=== PATIENT | female | born 1990 | race Caucasian/White ===

== ENCOUNTER 2020-11-26 17:49 | Outpatient (RCR) | payer BC, SELFPAY | END 2021-02-22 23:59 | disposition home or self-care (01) | LOC: ANHLAB 17:49 | PROVIDERS: PCP Family Medicine; Visit Provider Obstetrics & Gynecology Gynecology | DX: O26.21 Pregnancy care for patient with recurrent pregnancy loss, first trimester (principal); Z3A.00 Weeks of gestation of pregnancy not specified | CPT/HCPCS: 36415; 84702 ==

== ENCOUNTER 2021-01-11 10:42 | Outpatient (CLI) | payer BC, SELFPAY ==
--- NOTE | ~2021-01-11 | US_ITS ---
EXAMINATION: US OB follow up DATE: 01/11/2021 11:30 INDICATION: Uncertain dating of . TECHNIQUE: Real-time ultrasound of the pelvis was performed. The interpreting radiologist was not pre sent for the study. COMPARISON: None. FINDINGS: There is a single living fetus in breech presentation. The placenta is anterior and low-lying with c audal margin 1.9 cm from the internal cervical os. heart rate is 145 beats per minute (bpm). Th e amniotic volume is subjectively normal. The following biometric data were obtained: BPD: 3.4 cm -> 16 weeks 3 days Head circumference: 12.7 cm -> 16 weeks 3 days Abdominal circumference: 10.8 cm -> 16 weeks 5 days Femur length: 2.0 cm -> 16 weeks 0 days These measurements are concordant. Head circumference to abdominal circumference ratio: 1.18 (normal range 1.06-1.32). Estimated weight: 154 g (+/-) 23 g. or 5 oz. (+/-) 1 oz. IMPRESSION: 1. Single living fetus in breech presentation with heart rate of 145 bpm. 2. Gestational age by ultrasound of 16 weeks 3 day(s) +/- 1 week(s) 1 day(s) with ultrasound estimate d date of delivery (ERICH) of 06/25/2021. Estimated weight is 3rd percentile by Hadlock criteria w hen 06/03/2021 is used as the ERICH. Please correlate with clinical information or earlier ultrasounds f or most accurate ERICH. 3. Low-lying anterior placenta with caudal margin 1.9 cm from the internal cervical os. Reviewed, dictated and finalized at location A. IMPRESSION: 1. Single living fetus in breech presentation with heart rate of 145 bpm. 2. Gestational age by ultrasound of 16 weeks 3 day(s) +/- 1 week(s) 1 day(s) wi th ultrasound estimated date of delivery (ERICH) of 06/25/2021. Estimated we ight is 3rd percentile by Hadlock criteria when 06/03/2021 is used as the ERICH. P lease correlate with clinical information or earlier ultrasounds for most accur ate ERICH. 3. Low-lying anterior placenta with caudal margin 1.9 cm from the internal cerv ical os.
== END 2021-01-11 10:43 | disposition home or self-care (01) ==
PROVIDERS: PCP Family Medicine; Visit Provider Nurse Practitioner
DX: Z36.87 Encounter for antenatal screening for uncertain dates (principal); Z3A.16 16 weeks gestation of pregnancy
CPT/HCPCS: 76816

== ENCOUNTER 2021-04-08 16:48 | Outpatient (CLI) | payer BC, SELFPAY ==
[2021-04-08 17:12] LABS: Basophils Percent Auto 0.3 % (0.2-1.2); Eosinophils Absolute Auto 0.1 K/mm3 (0-0.3); Eosinophils Percent Auto 0.7 % (0-4.4); Hematocrit 34.3 % (37.0-47.0); Hemoglobin 11.5 g/dL (12.0-15.0); Immature Granulocyte Absolute 0.06 K/mm3 (0.00-0.031); Immature Granulocyte Percent A 0.6 % (0-0.5); Lymphocytes Percent Auto 21.9 % (18.3-44.2); Mean Corpuscular HGB Conc 33.5 g/dl (32-36); Mean Corpuscular Hemoglobin 30.8 pg (26-34); Mean Platelet Volume 8.8 fl (7.4-10.4); Monocytes Absolute Auto 0.6 K/mm3 (0.1-0.6); Monocytes Percent Auto 6.7 % (2.6-8.5); Neutrophils Absolute Auto 6.7 K/mm3 (1.3-6.7); Neutrophils Percent Auto 69.8 % (45.5-73.1); Platelet Count Result 250 k/mm3 (150-375); Red Blood Count 3.73 M/mm3 (4.2-5.4); Red Cell Distribution Width 11.9 % (11.5-14.5); White Blood Count 9.6 K/mm3 (4.5-10.0)
[2021-04-08 19:20] LABS: Hemoglobin A1C 4.9 % (<5.7)
[2021-04-08 19:56] LABS: Hepatitis B Surface Antigen Negative (Negative); Rubella IgG Antibody 17.5 IU/ML
[2021-04-08 20:04] LABS: HIV 1/2 Ab P24 Ag Result Negative (Negative)
[2021-04-08 21:53] LABS: Vitamin D 25 Hydroxy 40.8 ng/mL
[2021-04-09 09:28] LABS: Rapid Plasma Reagin Non-Reactive (NonReactive)
== END 2021-04-08 16:49 | disposition home or self-care (01) ==
PROVIDERS: PCP Family Medicine; Visit Provider Obstetrics & Gynecology Gynecology
DX: Z34.92 Encounter for supervision of normal pregnancy, unspecified, second trimester (principal); Z3A.16 16 weeks gestation of pregnancy
CPT/HCPCS: 36415; 82306; 83036; 85025; 85461; 86592; 86703; 86762; 87340; G0432

== ENCOUNTER 2021-04-20 15:48 | Outpatient (CLI) | payer BC, SELFPAY ==
--- NOTE | ~2021-04-20 | US_ITS ---
EXAMINATION: US OB /maternal detail DATE: 04/20/2021 16:56 INDICATION: Low-lying placenta. survey. TECHNIQUE: Multiple obstetric sonographic images performed. FINDINGS: Comparison ultrasound dated 01/11/2021 There is a single living fetus in breech presentation. The placenta is anterior without placenta pre via. Amniotic fluid volume is normal. TIM measures 18 cm. cardiac activity and movement is noted with a heart rate of 138 beats per minute. The following anatomy was identified as normal: 4 chamber heart 3 vessel cord cord insertion kidneys urinary bladder stomach diaphragm The intracranial structures and spine are not well visualized due to advanced gestational age. The following biometric data were obtained: BPD: 80mm corresponds to gestational age 31 weeks 6 days. Head circumference: 294 mm corresponds to gestational age 32 weeks 3 days. Abdominal circumference: 276 mm corresponds to gestational age 31 weeks 4 days. Femur length: 59 mm corresponds to gestational age 30 weeks 4 days. Head circumference to abdominal circumference ratio: 1.07 (normal range for expected gestational age is 0.96-1.15). Estimated weight: 1760 grams +/- 264 grams using Hadlock method. IMPRESSION: 1: Single living intrauterine with an estimated gestational age of 30weeks 4days by initial ultrasound measurements, with an EDC of 06/25/2021 in breech presentation. 2. Normal limited survey. Evaluation of intracranial structures and spine are limited due to a dvanced gestational age. Reviewed, dictated and finalized at location A. IMPRESSION: 1: Single living intrauterine with an estimated gestational age of 30 weeks 4days by initial ultrasound measurements, with an EDC of 06/25/2021 in franck ech presentation. 2. Normal limited survey. Evaluation of intracranial structures and spin e are limited due to advanced gestational age.
== END 2021-04-20 15:49 | disposition home or self-care (01) ==
PROVIDERS: PCP Family Medicine; Visit Provider Obstetrics & Gynecology Gynecology
DX: Z36.9 Encounter for antenatal screening, unspecified (principal); Z3A.30 30 weeks gestation of pregnancy
CPT/HCPCS: 76805

== ENCOUNTER 2021-05-03 13:46 | Outpatient (CLI) | payer BC, SELFPAY ==
[2021-05-03 15:38] LABS: Glucose 1 Hour PP 50gm Dose 105 mg/dL
== END 2021-05-03 13:47 | disposition home or self-care (01) ==
LOC: ANHLAB 13:48
PROVIDERS: PCP Family Medicine; Visit Provider Obstetrics & Gynecology Gynecology
DX: Z34.93 Encounter for supervision of normal pregnancy, unspecified, third trimester (principal); Z3A.00 Weeks of gestation of pregnancy not specified
CPT/HCPCS: 36415; 82947

== ENCOUNTER 2021-06-16 15:00 | Outpatient (RCR) | payer BC, SELFPAY ==
--- NOTE | ~2021-06-16 | US_ITS ---
EXAMINATION: US OB limited w BPP EXAM DATE: 06/16/2021 16:07 INDICATION: BPP and TIM- oligohydraminos BPP AND TIM . 3rd trimester. TECHNIQUE: Pelvic obstetrical transabdominal sonogram was performed by a technologist. There are mu ltiple grayscale and Doppler images available for interpretation. Comparison is made to prior examina tion from 04/20/2021. FINDINGS: There is a single fetus identified in vertex presentation with a heart rate of 159 beats pe r minute. The placenta is located in the anterior position. There is no sonographic evidence of retr oplacental hemorrhage identified. AMNIOTIC FLUID INDEX Quadrant 1: 2.4 cm Quadrant 2: 2.4 cm Quadrant 3: 1.6 cm Quadrant 4: 2.6 cm Amniotic fluid index: 9.0 cm. (The 5th -- 95th percentile range is 7.2-22.6 centimeters). BIOPHYSICAL PROFILE (performed by the technologist) breathing (30 sec sustained breathing in 30 minutes): 2 out of 2 movement (3 gross body movements in 30 minutes): 2 out of 2 tone (one episode of doxbjok-kcvvnfnyu-dvfblya limb movement): 2 out of 2 Amniotic fluid pocket (2 cm): 2 out of 2 Total score: 8 out of 8 IMPRESSION: 1. Single fetus with heart rate of 159 bpm. 2. Normal biophysical profile score of 8 out of 8. 3. Amniotic Fluid Index 9.0 cm, lower limits of normal . Reviewed, dictated and finalized at location B.
[2021-06-16 16:50] VITALS: BP 121/68; PULSE 84
== END 2021-06-30 10:10 | disposition home or self-care (01) ==
LOC: ANHOBOP 15:00
PROVIDERS: PCP Family Medicine; Visit Provider Obstetrics & Gynecology Gynecology
DX: O41.03X0 Oligohydramnios, third trimester, not applicable or unspecified (principal); Z3A.38 38 weeks gestation of pregnancy
CPT/HCPCS: 59025; 76815; 76819

== ENCOUNTER 2021-06-22 06:23 | Inpatient (IN) | payer BC, SELFPAY ==
[2021-06-22] VITALS (81 sets, daily range): BP systolic 95–141; BP diastolic 51–86; PULSE 73–116; RESP 18; TEMP 36.5–36.8; O2SAT 81–100; BMI 34.2
--- NOTE | 2021-06-22 07:41 | WPDOBADMIT ---
Obstetrics - Admit Note Admission Note: record reviewed. No pertinent additions to the history and/or any subsequent changes in the physical findings that are not consistent with the expected course of the were found. Additions to the history and/or subsequent changes in the physical findings follow. Here for MIL at 39 wks. Cervix 4/80/-2 AROM with light mec. noted. FHTs reactive.
[2021-06-22] MEDS: OXYTOCIN 30 UNITS/NS 500 ML 30 UNITS/500 ML BAG IV CONT (08:29)
[2021-06-22] MEDS: LACTATED RINGERS 1,000 ML 125 ML IV CONT (08:29)
[2021-06-22] MEDS: AMPICILLIN 2 GM/NS 100 ML 2 GM/100 ML BAG IVPB (08:29)
[2021-06-22 08:30] LABS: Basophils Percent Auto 0.3 % (0.2-1.2); Eosinophils Absolute Auto 0.1 K/mm3 (0-0.3); Hematocrit 35.1 % (37.0-47.0); Hemoglobin 11.8 g/dL (12.0-15.0); Immature Granulocyte Absolute 0.07 K/mm3 (0.00-0.031); Immature Granulocyte Percent A 0.7 % (0-0.5); Lymphocytes Absolute Auto 1.78 K/mm3 (0.9-3.2); Lymphocytes Percent Auto 18.3 % (18.3-44.2); Mean Corpuscular HGB Conc 33.6 g/dl (32-36); Mean Corpuscular Hemoglobin 30.6 pg (26-34); Mean Corpuscular Volume 91.2 fl (80-100); Mean Platelet Volume 9.6 fl (7.4-10.4); Monocytes Absolute Auto 0.5 K/mm3 (0.1-0.6); Monocytes Percent Auto 5.5 % (2.6-8.5); Neutrophils Absolute Auto 7.2 K/mm3 (1.3-6.7); Neutrophils Percent Auto 74.2 % (45.5-73.1); Platelet Count Result 233 k/mm3 (150-375); Red Blood Count 3.85 M/mm3 (4.2-5.4); Red Cell Distribution Width 12.3 % (11.5-14.5); White Blood Count 9.7 K/mm3 (4.5-10.0)
--- NOTE | 2021-06-22 09:04 | WPDANESEPP ---
Anes - Eval Pre Procedure Procedure: labor epidural Date/Time: 06/22/21 09:04 Pre Op Diagnosis: iol Patient Data Age: 30 Gender: F Height: 1.7 m Weight: 99 kg Last Vital Signs Pulse 88 06/22/21 07:31 BP 121/72 06/22/21 07:31 Allergies Allergy/AdvReac Type Severity Reaction Status Date / Time Sulfa (Sulfonamide Allergy Severe Anaphylactic Verified 06/22/21 08:34 Antibiotics) Shock Home Medications Medication Instructions Recorded Confirmed Type PNV cmb#95-ferrous fumarate-FA 1 tablet PO DAILY 09/10/19 06/22/21 History [] ergocalciferol (vitamin D2) 1 tablet PO DAILY 06/16/21 06/22/21 History ferrous sulfate 325 mg PO DAILY 06/16/21 06/22/21 History loratadine [Claritin] 10 mg PO DAILY 06/16/21 06/22/21 History Laboratory Tests 06/22/21 06/22/21 07:57 07:57 WBC 9.7 K/mm3 K/mm3 (4.5-10.0) RBC 3.85 M/mm3 L M/mm3 (4.2-5.4) Hgb 11.8 g/dL L g/dL (12.0-15.0) Hct 35.1 % L % (37.0-47.0) MCV 91.2 fl fl (80-100) MCH 30.6 pg pg (26-34) MCHC 33.6 g/dl g/dl (32-36) RDW 12.3 % % (11.5-14.5) Plt Count 233 k/mm3 k/mm3 (150-375) MPV 9.6 fl fl (7.4-10.4) Immature Gran % (Auto) 0.7 % H % (0-0.5) Neut % (Auto) 74.2 % H % (45.5-73.1) Lymph % (Auto) 18.3 % % (18.3-44.2) [place] % (Auto) 5.5 % % (2.6-8.5) Eos % (Auto) 1.0 % % (0-4.4) Baso % (Auto) 0.3 % % (0.2-1.2) Lymph # (Auto) 1.78 K/mm3 K/mm3 (0.9-3.2) [place] # (Auto) 0.5 K/mm3 K/mm3 (0.1-0.6) Eos # (Auto) 0.1 K/mm3 K/mm3 (0-0.3) Baso # (Auto) 0.0 K/mm3 K/mm3 (0.0-0.1) Abs Immat Gran (auto) 0.07 K/mm3 H K/mm3 (0.00-0.031) Absolute Neuts (auto) 7.2 K/mm3 H K/mm3 (1.3-6.7) Absolute Nucleated RBC 0.0 K/mm3 K/mm3 (0.0-0.012) Nucleated RBC % 0.0 % % (0.0-0.2) RPR Pending Patient hx anesthesia problems: none Family hx anesthesia problems: none [facility] Past Medical History Medical History Bronchitis (normal spontaneous vaginal delivery) Obesity (BMI 30-39.9) Family History Family History Father Testicle cancer Hypertension Grandparent Breast cancer Hypertension Diabetes mellitus Mother Diabetes mellitus Social History Social History Smoking status: Never smoker Substance use: never Spiritual care concerns: Yes Exam Day of Procedure 06/22/21 09:04 Patient weight: obese Heart: regular rate and rhythm Lungs: normal air movement Airway: Mallampati scale class II Neurological: alert and oriented
[2021-06-22] MEDS: AMPICILLIN 1 GM/NS 50 ML 1 GM/50 ML BAG IVPB ×2 (12:22→16:08)
--- NOTE | 2021-06-22 12:30 | LDADM ---
This patient, Mulu Thomas, was admitted to Labor/Delivery/Recovery 102 on 06/22/21 at 06:23. Plans for labor, pain management and were discussed with patient. Patient/family oriented to hospital policies and general routines including ID bracelet, bed and alarms, visiting hours, pain management, procedures, bathroom and other care routines, personal items, smoking policy, room service/diet and guest tray routines, security routines, call light and visiting hours. Patient/Family are encouraged to report perceived risks to care and to ask questions if they do not understand what they are told or what they should do. See OBIX for further documentation.
--- NOTE | 2021-06-22 17:28 | PM.OBPRVD ---
OB - Delivery Note Procedure Delivery date: 06/22/21 Procedure: events: Labor Induction Intrapartal events: None Induction method: AROM and per pitocin protocol Delivery monitor: external FHT and external uterine Route of delivery: Laceration Description: Perineal - 1st Degree Delivery repair: vicryl (3-0) Specimen: No Quantitative Blood Loss (ml): 125 Anesthesia type: Epidural Disposition: floor Baby Date of : 06/22/21 Weeks of gestation at delivery: 39 Infant gender: Male presentation: vertex position: Left Occiput Anterior Placenta delivery description: Spontaneous cord vessel description: 3 Vessels score one minute: 9 score five minutes: 9
--- NOTE | 2021-06-22 17:29 | P.DS_ITS ---
DS: Admitting Diagnosis Discharge Date IUP 39 wks [facility] Admitting Diagnosis IUP 39 wks [facility] OB - DS: Summary OB Procedures : Ultrasound OB Procedures Intrapartum: Spontaneous Vag Delivery OB Procedures: : None Peripartum Data Delivery Method: Natural Vaginal Laceration Description: Perineal - 1st Degree complications: none Status at Discharge Functional status at discharge: independent ambulation Overall status at discharge: patient is progressing back to baseline Time Spent with Patient Time attestation: Total time spent providing and/or coordinating discharge services: DS: Data Data Completed and Pending Labs on day of discharge: Labs from last 24 hours 06/22/21 06/22/21 06/22/21 07:57 07:57 07:57 WBC 9.7 RBC 3.85 L Hgb 11.8 L Hct 35.1 L MCV 91.2 MCH 30.6 MCHC 33.6 RDW 12.3 Plt Count 233 MPV 9.6 Immature Gran % (Auto) 0.7 H Neut % (Auto) 74.2 H Lymph % (Auto) 18.3 [place] % (Auto) 5.5 Eos % (Auto) 1.0 Baso % (Auto) 0.3 Lymph # (Auto) 1.78 [place] # (Auto) 0.5 Eos # (Auto) 0.1 Baso # (Auto) 0.0 Abs Immat Gran (auto) 0.07 H Absolute Neuts (auto) 7.2 H Absolute Nucleated RBC 0.0 Nucleated RBC % 0.0 RPR Pending Blood Type A Positive Antibody Screen Negative Discharge Plan Discharge Attending physician on discharge: Patricia Minor Discharging Clinician: Patricia Minor Anticipated Discharge Date/Time: 06/24/21 17:32 Patient Disposition: Home, Self-Care Activity: may shower and pelvic rest Diet: regular Patient Instructions: Antibiotic Form Stand Alone Forms: General Discharge Information Follow-up/Referrals: Patricia Minor MD [Physician] - 6 Weeks Discharge Medications: Continued PNV cmb#95-ferrous fumarate-FA [] 28 mg iron- 800 mcg Tablet 1 tablet PO DAILY RF: 0 ergocalciferol (vitamin D2) 1 tablet PO DAILY RF: 0 Discontinued loratadine [Claritin] 10 mg Tablet 10 mg PO DAILY RF: 0 ferrous sulfate 325 mg (65 mg iron) Tablet 325 mg PO DAILY RF: 0 Date of admission: 06/22/21 06:23 Primary Care Provider: Micheal,Armaan Admitting Provider: Patricia Minor Attending physician on admission: Patricia Minor Condition: Stable Care Plan Goals: Plans Liletta IUD for bc
[2021-06-22] MEDS: OXYTOCIN 30 UNITS/NS 500 ML 30 UNITS/500 ML BAG 125 UNITS IV CONT (17:51)
[2021-06-22] MEDS: WITCH HAZEL 40 PADS 1 PAD TOPICAL (20:15)
[2021-06-22] MEDS: LORATADINE 10 MG TABLET PO (20:15)
[2021-06-22] MEDS: BENZOCAINE 20% AER SPR (*SP) 56 GM CAN 1 SPRAY TOPICAL (20:15)
--- NOTE | 2021-06-22 20:31 | OBPPTRN ---
Patient transferred to post room #281 via wheelchair. Support person present. Oriented to unit, room, information board, rooming in, admission packet and security measures. Patient verbalizes understanding.
[2021-06-23] MEDS: ACETAMINOPHEN 325 MG TABLET 650 MG PO (03:35)
[2021-06-23] MEDS: IBUPROFEN 600 MG TABLET PO ×2 (03:35→17:41)
[2021-06-23] MEDS: TETANUS,DIPHTHERIA,AC PERTUSSIS ADULT (0.5 ML) BOOSTRIX IM (03:43)
[2021-06-23 03:50] VITALS: BP 117/72; PULSE 74; RESP 18; TEMP 36.7
[2021-06-23 05:15] LABS: Hematocrit 34.6 % (37.0-47.0); Hemoglobin 11.9 g/dL (12.0-15.0)
--- NOTE | 2021-06-23 05:20 | P.PNOB_ITS ---
OB - PN: Subj Subjective Date/time seen: 06/23/21 05:20 Patient comments: no complaints and pain well controlled baby status: doing well OB - PN: Obj Data Labs CBC & Chem 7: 06/22/21 07:57 Labs: Laboratory Results - last 24 hr 06/22/21 06/22/21 07:57 07:57 WBC 9.7 RBC 3.85 L Hgb 11.8 L Hct 35.1 L MCV 91.2 MCH 30.6 MCHC 33.6 RDW 12.3 Plt Count 233 MPV 9.6 Immature Gran % (Auto) 0.7 H Neut % (Auto) 74.2 H Lymph % (Auto) 18.3 [place] % (Auto) 5.5 Eos % (Auto) 1.0 Baso % (Auto) 0.3 Lymph # (Auto) 1.78 [place] # (Auto) 0.5 Eos # (Auto) 0.1 Baso # (Auto) 0.0 Abs Immat Gran (auto) 0.07 H Absolute Neuts (auto) 7.2 H Absolute Nucleated RBC 0.0 Nucleated RBC % 0.0 Blood Type A Positive Antibody Screen Negative OB - PN A/P Plan day: 1 Plan: routine care Time Spent With Patient Time: Total time spent is greater than 50% in coordination of care (as documented) at patient's floor/unit and/or counseling patient: Exam : Bimanual exam- vagina & uterus: other (Uterus firm, nt @U)
[2021-06-23 07:55] VITALS: BP 99/67; PULSE 66; RESP 16; TEMP 36.2; O2SAT 98
[2021-06-23 08:01] LABS: Rapid Plasma Reagin Non-Reactive (NonReactive)
--- NOTE | 2021-06-23 08:35 | WPDANLDPN2 ---
Anes-Prog Note L&D Date/Time: 06/23/21 08:35 Comfortable throughout: labor and delivery Neuraxial method: epidural Epidural/Spinal procedure site: clean & non-tender Neuro status: Neuro function grossly intact. Cardiovascular status: normal Respiratory status: normal Airway patency: baseline Mental status: baseline Post-Op hydration status: normal Vital Signs: Last Vital Signs Temp 36.7 C 06/23/21 03:50 Pulse 74 06/23/21 03:50 Resp 18 06/23/21 03:50 BP 117/72 06/23/21 03:50 Pulse Ox 100 06/22/21 17:11 Pain score (VAS): 3 I/O: Intake & Output 06/22/21 06/23/21 06/23/21 23:59 07:59 15:59 Intake Total 2550 Output Total 673 Balance 1877 Post-procedural complaints: none Patient feedback: Patient satisfied with anesthetic care.
--- NOTE | 2021-06-23 13:25 | PC.NURSE ---
Mother called out for assist with feeding, reporting is sleepy and not latching. Mother reports infant is making good attempts to latch and does not nurse more than 4-5 good draws and will release latch. Mother states she used a nipple shield with first child and would like to see if this would help infant maintain latch. Infant is able to freely thrust tongue past gum ridge and flange both lips. Skin is intact on both nipples, no redness and bruising noted. Reviewed infant feeding cues, frequencies, duration of feedings, feeding elimination flow sheet, and signs of adequate intake. Demonstrated stimulation techniques to wake infant for feeding. Assisted with to breast. Reviewed positioning/alignment in cross cradle, holding breast in ?U? hold and guided asymmetrical latch on. Discussed rational for each. made eager attempts and is unable to latch correctly, he does not draw entire nipple in. Attempt for 10 minutes, with mother reporting this is a typical feeding. Nipple shield provided to mother due to is not able to draw nipple in. Discussed nipple shield precautions and possible complications. Instructions given on application and cleaning of shield Patient able to return demonstration on proper application of shield. Discussed the need to initiate pumping if continues to nurse with the shield. Patient verbalizes understanding. With shield in place, was able to latch deeply. Reviewed signs of a correct latch, effective nursing and suck swallow ratio. nursed eagerly with steady draws for short bursts and long pausing. was able to be stimulated into nursing, again for bursts. Reviewed the difference of effective vs ineffective nursing. Suggested mother stimulate while feeding to increase stimulation, increase intake and to assist with maintaining deep latch. Reviewed effective vs ineffective nursing. Parents have supplemented once during the night. Discussed current feeding observation is not effective with good milk transfer and suggested mother supplement 10-15mls after feeding. Mother is hesitant to supplement with concerns of supplement impacting nursing. Reviewed adequate signs of intake and infant is WNL at this time. Nipple care reviewed of lanolin after feedings, warm compresses as needed at the breast for 20 minutes with on and off feeding. Instructed mother to call out for RN assistance if she is unable to latch infant for feeding or she has discomfort with nursing. Instructed feeding should be initiated three hours from start of last feeding or if feeding cues are noted before. Mother voiced understanding of information shared.
[2021-06-23 13:30] VITALS: BP 109/69; PULSE 66; RESP 16; TEMP 36.9; O2SAT 96
[2021-06-23] MEDS: LORATADINE 10 MG TABLET PO (17:43)
[2021-06-23 20:00] VITALS: BP 114/72; PULSE 67; RESP 16; TEMP 36.7; O2SAT 100
--- NOTE | 2021-06-24 07:29 | PM.OBPNVD ---
OB - PN: Subj Subjective Date/time seen: 06/24/21 07:29 Patient comments: no complaints and pain well controlled baby status: doing well OB - PN: Obj Data Labs CBC & Chem 7: 06/23/21 04:05 Labs: Laboratory Results - last 24 hr 06/22/21 07:57 RPR Non-reactive OB - PN A/P Plan day: 2 Plan: routine care, discharge home, follow up 6 weeks and other (corbin Cast) Time Spent With Patient Time: Total time spent is greater than 50% in coordination of care (as documented) at patient's floor/unit and/or counseling patient: Exam : Bimanual exam- vagina & uterus: other (Uterus firm, nt @U)
[2021-06-24 08:05] VITALS: BP 114/70; PULSE 74; RESP 18; TEMP 36.7; O2SAT 98
[2021-06-24] MEDS: IBUPROFEN 600 MG TABLET PO (08:13)
--- NOTE | 2021-06-24 09:00 | PC.NURSE ---
Mother is able to independently latch with appropriate positioning/alignment. She denies any nipple discomfort, is feeding as required and waking infant to feed if needed. Infant is feeding as required followed with 15-20 mls supplementation in the past 12 hours, and is currently meeting outcomes for weight, output, jaundice and feeding frequencies. is more awake and eager to feed today. Mother states she will continue to supplement until her milk is in and feels is more awake and having longer feedings. Discussed initiating pumping after some feedings to stimulate milk supply. Mother does not feel she wishes to pump at this time and will begin pumping if her milk is not in within a few days and feels requires supplementation. Mother states first child was sleepy at first and had a good milk supply at day 4. Mother has her own double electric pump for home use. Discussed increasing supplementation as infant requires to satisfactions. Reviewed paced feeding and suggested to stop when is satisfied, as long as is having required output. With increased supplementation infant may not want to feed for 4 hours. Reviewed once mother?s milk is established and is effectively feeding may have increased intake with nursing and may be able to discontinue supplement. Advised not to discontinue supplement until ICP, Follow-Up RN or LC has a pre/post weighted evaluation of infant feeding. Reviewed transition to breast milk, signs of adequate intake, and engorgement/relief. Instructed to call ICP if intake/output less than required. Reviewed regular medications mother is taking. Information provided per Tiffani. Reviewed community resources on the [facility] website and in the Mom/Baby guide. Information on outpatient services provided. Mother has no further questions at this time
[2021-06-25 09:39] VITALS: BP 111/72; PULSE 87; RESP 20; TEMP 36.9; O2SAT 100
== END 2021-06-24 12:00 | disposition home or self-care (01) | DRG 806 ==
LOC: ANHLDR 17:33 → ANHOB2 20:50
PROVIDERS: Admitting Provider Obstetrics & Gynecology Gynecology; PCP Family Medicine; Visit Provider Obstetrics & Gynecology Gynecology
DX: O70.0 First degree perineal laceration during delivery (principal); O41.03X0 Oligohydramnios, third trimester, not applicable or unspecified; Z37.0 Single live birth; O77.0 Labor and delivery complicated by meconium in amniotic fluid; Z3A.39 39 weeks gestation of pregnancy
CPT/HCPCS: 36415; 85014; 85018; 85025; 86592; 86850; 86900; 86901; 90715; A9270; J0290; J2590; J2795; J7120

== ENCOUNTER 2025-10-14 14:30 | Inpatient (IN) | payer BC, SELFPAY ==
[2025-10-14] VITALS (87 sets, daily range): BP systolic 95–138; BP diastolic 47–100; PULSE 74–171; RESP 16; TEMP 36.8–37.1; O2SAT 98–100; BMI 36.1
--- OUTSIDE RECORDS SUMMARY | 2025-10-14 14:49 | XMS_ITS | Clinical Summary ---
Author Organization [facility] Address [address] [place] [phone] Phone Care Team Providers Care Bond Trader Name Role Phone Unavailable Primary Care Provider Unavailabl e Social History Tobacco Use Types Packs/Day Years Used Date Smoking Tobacco: Never Assessed Comments Unknown Sex and Gender Information Value Date Recorded Sex Assigned at Not on file Legal Sex Female 7:32 AM CDT Gender Identity Not on file Sexual Orientation Not on file Plan of Treatment Health Maintenance Due Date Last Done Comments DTAP/TDAP/TD VACCINES (1 - Tdap) 12/15/2007 HEPATITIS B VACCINES (1 of 3 - 19+ 3-dose series) 10/2007 HPV/Cotest (21-29) 2009 CERVICAL CANCER SCREENING 2018 HPV/Cotest (30-65) 2018 PAP SMEAR 2018 INFLUENZA VACCINE (#1) 2025 HPV VACCINES (No Doses Required) Completed Insurance BCBS TRADITIONAL
--- OUTSIDE RECORDS SUMMARY | 2025-10-14 15:05 | XMS_ITS | Clinical Summary ---
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 Gender Identity Not on file Sexual Orientation Not on file Last Filed Vital Signs Vital Sign Reading Time Taken Comments Blood Pressure 117/76 03/29/2017 10:29 AM CDT Pulse 65 03/29/2017 10:29 AM CDT Temperature - - Respiratory Rate - - Oxygen Saturation - - Inhaled Oxygen Concentration - - Weight 79.8 kg (176 lb) 03/29/2017 10:29 AM CDT Height 170.2 cm (5' 7) 03/29/2017 10:29 AM CDT Body Mass Index 27.57 03/29/2017 10:29 AM CDT Plan of Treatment Health Maintenance Due Date Last Done Comments Cervical Cancer Screening Pa p Smear (Age 30 to 64) Every 3 Years 1988 Annual Physical 12/15/1991 Hepatitis C 2006 DTaP, Tdap and Td Vaccines ( 1 - Tdap) 12/15/2007 Hepatitis B Vaccines (1 of 3 - 19+ 3-dose series) 12/15/2007 HPV Vaccines (1 - 3-dose SCD M series) 12/15/2015 Cervical Cancer Screening Pa p with HPV Testing (Age 30 to 64) Every 5 Years 2018 Cervical Cancer Screening with HPV 2018 COVID-19 Vaccine (2024-2 6 season) 2025 Influenza Adult (#1) 2025 Hepatitis A Vaccines Aged Out No long er eligible based on patient's age to complete this topic Meningococcal B Vaccine Aged Out No l onger eligible based on patient's age to complete this topic Meningococcal Vaccine Aged Out No odette eric eligible based on patient's age to complete this topic Pneumococcal Vaccine: Pediat rics (0 to 5 Years) and At-Risk Patients (6 to 49 Years) Aged Out No longer eligible b ased on patient's age to complete this topic RSV Immunizations Under 20 Months Aged Out No longer eligible based on patient's age to complete this topic Insurance [facility] Care Teams Solutions Specialist Relationship Specialty Start Date End Date Armaan Burton MD [address] [place] [phone] PCP - General FAMILY PRACTICE 10/01/20
--- OUTSIDE RECORDS SUMMARY | 2025-10-14 15:05 | XMS_ITS | Encounter Summary ---
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 Gender Identity Not on file Sexual Orientation Not on file documented as of this encounter Plan of Treatment Not on file documented as of this encounter Visit Diagnoses Not on filedocumented in this encounter Additional Health Concerns Infection Onset Date Last Indicated Resolved Time COVID-19 Rule Out 10/01/2020 10/01/2020 10/02/2020 9:52 PM TALENT ACQUISITION LEAD documented as of this encounter Care Teams Course Instructor Relationship Specialty Start Date End Date Armaan Burton MD [address] [place] [phone] PCP - General FAMILY PRACTICE 10/01/20 documented as of this encounter
[2025-10-14 15:15] LABS: Hematocrit 34.9 % (37.0-47.0); Hemoglobin 11.8 g/dL (12.0-15.0); Immature Granulocyte Percent A 0.4 % (0-0.5); Lymphocytes Absolute Auto 1.51 K/mm3 (0.9-3.2); Mean Corpuscular HGB Conc 33.8 g/dl (32-36); Mean Corpuscular Hemoglobin 30.3 pg (26-34); Mean Corpuscular Volume 89.7 fl (80-100); Nucleated Red Blood Cells Absolute Auto 0.000 K/mm3 (0.0-0.012); Nucleated Red Blood Cells Perc 0.0 % (0.0-0.2); Platelet Count Result 305 k/mm3 (150-375); Red Blood Count 3.89 M/mm3 (4.2-5.4); White Blood Count 13.5 K/mm3 (4.5-10.0)
--- NOTE | 2025-10-14 15:29 | LDADM ---
This patient, Mulu Thomas, was admitted to Labor/Delivery/Recovery 105 on 10/14/25 at 14:30. Plans for labor, pain management and were discussed with patient. Patient/family oriented to hospital policies and general routines including ID bracelet, bed and alarms, visiting hours, pain management, procedures, bathroom and other care routines, personal items, smoking policy, room service/diet and guest tray routines, security routines, and visiting hours. Patient/Family are encouraged to report perceived risks to care and to ask questions if they do not understand what they are told or what they should do. See OBIX for further documentation.
[2025-10-14] MEDS: LACTATED RINGERS 1,000 ML 125 ML IV CONT (15:45)
--- NOTE | 2025-10-14 16:03 | WPDANESEPPF ---
Anes - Initial Pre Proc Eval Date/Time: 10/14/25 16:03 Surgeon: Gilbert Caceres MD Pre Op Diagnosis: r/o contractions Patient Data Age: 34 Gender: F Height: 1.7 m Weight: 104.5 kg Last Vital Signs Pulse 86 10/14/25 16:00 BP 123/85 10/14/25 16:00 Pulse Ox 100 10/14/25 15:59 O2 Del Method Room Air 10/14/25 15:25 Allergies Allergy/AdvReac Type Severity Reaction Status Date / Time Sulfa (Sulfonamide Allergy Severe Anaphylactic Verified 10/14/25 15:29 Antibiotics) Shock Home Medications ?Medication ?Instructions ?Recorded ?Confirmed ?Type vit no.95-ferrous 1 tablet PO DAILY 09/10/19 06/22/21 History fumarate 28 mg-folic acid 800 mcg tablet () ergocalciferol (vitamin D2) 1 tablet PO DAILY 06/16/21 06/22/21 History Laboratory Tests 10/14/25 15:08 WBC 13.5 H K/mm3 (4.5-10.0) RBC 3.89 L M/mm3 (4.2-5.4) Hgb 11.8 L g/dL (12.0-15.0) Hct 34.9 L % (37.0-47.0) MCV 89.7 fl (80-100) MCH 30.3 pg (26-34) MCHC 33.8 g/dl (32-36) RDW 11.9 % (11.5-14.5) Plt Count 305 k/mm3 (150-375) MPV 9.1 fl (7.4-10.4) Immature Gran % (Auto) 0.4 % (0-0.5) Neut % (Auto) 83.2 H % (45.5-73.1) Lymph % (Auto) 11.2 L % (18.3-44.2) [place] % (Auto) 4.7 % (2.6-8.5) Eos % (Auto) 0.3 % (0-4.4) Baso % (Auto) 0.2 % (0.2-1.2) Lymph # (Auto) 1.51 K/mm3 (0.9-3.2) [place] # (Auto) 0.6 K/mm3 (0.1-0.6) Eos # (Auto) 0.0 K/mm3 (0-0.3) Baso # (Auto) 0.0 K/mm3 (0.0-0.1) Abs Immat Gran (auto) 0.06 H K/mm3 (0.00-0.031) Absolute Neuts (auto) 11.2 H K/mm3 (1.3-6.7) Absolute Nucleated RBC 0.000 K/mm3 (0.0-0.012) Nucleated RBC % 0.0 % (0.0-0.2) Blood Type Pending Antibody Screen Pending Patient hx anesthesia problems: none Family hx anesthesia problems: none Results Review: All pre-operative results and documents have been reviewed as part of the pre-operative evaluation. [facility] Past Medical History Medical History (normal spontaneous vaginal delivery) Obesity (BMI 30-39.9) Bronchitis Family History Family History Father Testicle cancer Hypertension Grandparent Breast cancer Hypertension Diabetes mellitus Mother Diabetes mellitus Social History Social History Smoking status: Never smoker Substance use: never Lack of Transportation: No Lack of Food: Never True Current Housing: I Have Housing Concerned About Future Housing: No Difficulty Paying Gas/Electric Bills: No Difficulty Paying for Meds: No Currently Unemployed: No Education: Master's Degree or Higher Difficulty w/ Childcare or Family Care: No Spiritual care concerns: No Anes - Eval Final PreProcedure Day of Procedure 10/14/25 16:03 Patient weight: obese Heart: regular rate and rhythm Lungs: clear to auscultation Neurological: alert and oriented Last oral intake: >/= 8 hours ASA classification: II Emergent: no Anesthetic plan: proceed Anesthesia type and monitoring: regional epidural and standard monitoring Results Review: All pre-operative results and documents have been reviewed as part of the pre-operative evaluation. Informed Consent: The patient's anesthetic plan and its attendant risks and benefits were discussed with the patient/family/POA. Questions were solicited and answers provided to the satisfaction of the patient/family/POA.
[2025-10-14 16:10] LABS: Syphilis IgG/IgM Antibody Non-Reactive (Nonreactive)
--- NOTE | 2025-10-14 16:57 | WPDOBADMIT ---
Obstetrics - Admit Note Admission Note: record reviewed. No pertinent additions to the history and/or any subsequent changes in the physical findings that are not consistent with the expected course of the were found. Additions to the history and/or subsequent changes in the physical findings follow. Here in labor 38 5/7 wks. On admit, 7 cm with BBOW. Now 9/BBOW. AROM with meconium. Comfortable with epidural. FHTs category I
--- NOTE | 2025-10-14 18:16 | PM.OBPRVD ---
OB - Vaginal Delivery Note Procedure Delivery date: 10/14/25 Induction method: None Delivery augmentation: Rupture of Membranes Delivery monitor: External FHT and External Uterine Route of delivery: Episiotomy description: None Laceration Description: Perineal - 1st Degree Delivery repair: vicryl (3-0) Specimen: Yes (placenta) Quantitative Blood Loss (ml): 100 Anesthesia type: Epidural Disposition: Floor Complications: No immediate complications Baby Date of : 10/14/25 Gestational Age by Date: 38 Infant gender: Female presentation: vertex position: Right Occiput Anterior Placenta delivery description: Spontaneous Cord Vessel Description: 3 Vessels, Nuchal Cord and Delayed Cord Clamping score one minute: 8 score five minutes: 9
--- NOTE | 2025-10-14 18:17 | PM.OBDSVD ---
DS: Admitting Diagnosis Discharge Date 10/15/25 Admitting Diagnosis IUP 38 5/7 Labor DS: Discharge Diagnosis Discharge Diagnosis (1) (normal spontaneous vaginal delivery): Code(s): O80 - Encounter for full-term uncomplicated delivery Status: Acute OB - DS: Summary OB Procedures : Ultrasound OB Procedures Intrapartum: Spontaneous Vag Delivery OB Procedures: : None Peripartum Data Infant Delivery Method: Natural Vaginal Laceration Description: Perineal - 1st Degree Episiotomy description: None complications: none Status at Discharge Functional status at discharge: independent ambulation Overall status at discharge: patient is progressing back to baseline Time Spent with Patient Time attestation: Total time spent providing and/or coordinating discharge services: DS: Data Data Completed and Pending Labs on day of discharge: Labs from last 24 hours 10/14/25 15:08 WBC 13.5 H RBC 3.89 L Hgb 11.8 L Hct 34.9 L MCV 89.7 MCH 30.3 MCHC 33.8 RDW 11.9 Plt Count 305 MPV 9.1 Immature Gran % (Auto) 0.4 Neut % (Auto) 83.2 H Lymph % (Auto) 11.2 L [place] % (Auto) 4.7 Eos % (Auto) 0.3 Baso % (Auto) 0.2 Lymph # (Auto) 1.51 [place] # (Auto) 0.6 Eos # (Auto) 0.0 Baso # (Auto) 0.0 Abs Immat Gran (auto) 0.06 H Absolute Neuts (auto) 11.2 H Absolute Nucleated RBC 0.000 Nucleated RBC % 0.0 Syphilis IgG/IgM Ab Non-reactive Blood Type A Positive Antibody Screen Negative Discharge Plan Discharge Attending physician on discharge: Gilbert Beatty Discharging Clinician: Patricia Minor Anticipated Discharge Date/Time: 10/16/25 18:18 Patient Disposition: Home Activity: may shower and pelvic rest Diet: heart healthy Discharge Instructions: Education: Mom and Baby Guide Given to: Mother Follow-Up: Call your delivering provider's office for an appointment to be seen in: 1 Week Mom and baby should come to the [facility] for the follow-up appointment. Appointment Date/Time: October 17, 2025 at 9:00 am What to expect at your follow-up visit: Physical Assessment Call [phone] if you are unable to keep your appointment time. BREAST CARE: * Wear a snug supportive bra. * For engorgement discomfort: Breast Feeding: * Apply warm moist washcloths * Express milk as needed to relieve engorgement * Wear loose clothing Bottle Feeding: * May apply ice packs * For sore nipples: * Identify correct latch-on * Apply warm moist washcloths before and after nursing * Air dry nipples after nursing * May apply Lansinoh cream to nipples EPISIOTOMY/PERINEAL CARE: * Until bleeding stops, use your marcello bottle after urinating * Change your pad frequently throughout the day * You may take sitz baths several times a day (fill your bathtub with warm water and soak for 20 minutes.) Do NOT bathe in the water * No tub baths until seen by your physician - You may shower ACTIVITY: * Rest as much as possible. * Do not exercise or lift anything heavier than your baby (such as laundry or other children.) * Avoid stairs or driving as much as possible. * Do not put anything into the vagina. No douching, tampons, or sexual activity until seen by physician. NOTIFY PHYSICIAN IF YOU HAVE ANY QUESTIONS OR IF ANY OF THE FOLLOWING SYMPTOMS OCCUR: * If your episiotomy or incision becomes red, swollen, or more painful than what you have experienced in the hospital. * If your vaginal bleeding becomes foul smelling. * If your vaginal bleeding becomes more heavy than a period or if your bleeding changes from pink to bright red. However, you may pass an occasional walnut-sized clot once or twice for the first week . * If you experience a sharp, shooting pain in you calves. * If you discover a hard, reddened area on your breast or if you experience flu-like symptoms. DIET: * Eat regular, well-balanced meals. * Drink plenty of fluids daily. If , drink to thirst. Patient Language: Greek Follow-up/Referrals: Gilbert Beatty MD [Physician, [employer]IDENT [employer]CRUITING] - Call for Appointment Discharge Medications: No Action PNV no.95-ferrous fumarate-FA [] 28 mg iron- 800 mcg Tablet 1 tablet PO DAILY ergocalciferol (vitamin D2) 1 tablet PO DAILY Date of admission: 10/14/25 14:30 Primary Care Provider: Micheal,Armaan Admitting Provider: Gilbert Beatty Attending physician on admission: Gilbert Beatty Condition: Stable
[2025-10-14] MEDS: OXYTOCIN 30 UNITS/NS 500 ML 30 UNITS/500 ML BAG 125 UNITS IV CONT (18:49)
--- NOTE | 2025-10-14 21:27 | OBPPTRN ---
Patient transferred to post room #286 via wheelchair. Support person present. Oriented to unit, room, information board, rooming in, admission packet and security measures. Patient verbalizes understanding.
--- NOTE | 2025-10-14 22:21 | S_PTH ---
PATIENT: Mulu Thomas LOC: [facility] U#:[id number] AGE/SX: 34/F ROOM: 286 RE10/14/[address]: Patricia Minor MD : [id number] BED: 00 DIS: 10/15/2025 SPEC #: [id number] RECD: 10/15/25 07:19 STATUS: [place] REJaquan #: [id number] [place]: 10/14/25 22:[address]: Patricia Minor DEPT: [facility] Surgical RECD BY: [place] An ENTERED: 10/15/25 07:19 SP TYPE: Surgical OTHR DR: MD Armaan SpenceMD Tissues: A - Placenta Procedures: Hematoxylin and Eosin Stain Gross and Microscopic Level 5
[2025-10-15] MEDS: WITCH HAZEL 40 PADS 1 PAD TOPICAL (00:15)
[2025-10-15] MEDS: BENZOCAINE 20% AER SPR (*SP) 56 GM CAN 1 SPRAY TOPICAL (00:15)
[2025-10-15 04:45] VITALS: BP 118/75; PULSE 80; RESP 16; TEMP 37.2; O2SAT 100; O2SAT 99
[2025-10-15] MEDS: IBUPROFEN 600 MG TABLET PO (04:50)
[2025-10-15 05:28] LABS: Hematocrit 29.2 % (37.0-47.0); Hemoglobin 9.9 g/dL (12.0-15.0)
[2025-10-15 07:15] VITALS: BP 107/74; PULSE 81; RESP 16; TEMP 37; O2SAT 98
--- NOTE | 2025-10-15 07:27 | P.PNOB_ITS ---
OB - PN: Subj Subjective Date/time seen: 10/15/25 07:27 Patient comments: no complaints and pain well controlled baby status: doing well OB - PN: Obj Data Labs 10/15/25 04:47 Labs: Laboratory Results - last 24 hr 10/14/25 10/15/25 15:08 04:47 WBC 13.5 H RBC 3.89 L Hgb 11.8 L 9.9 L Hct 34.9 L 29.2 L MCV 89.7 MCH 30.3 MCHC 33.8 RDW 11.9 Plt Count 305 MPV 9.1 Immature Gran % (Auto) 0.4 Neut % (Auto) 83.2 H Lymph % (Auto) 11.2 L [place] % (Auto) 4.7 Eos % (Auto) 0.3 Baso % (Auto) 0.2 Lymph # (Auto) 1.51 [place] # (Auto) 0.6 Eos # (Auto) 0.0 Baso # (Auto) 0.0 Abs Immat Gran (auto) 0.06 H Absolute Neuts (auto) 11.2 H Absolute Nucleated RBC 0.000 Nucleated RBC % 0.0 Syphilis IgG/IgM Ab Non-reactive Blood Type A Positive Antibody Screen Negative OB - PN A/P Plan day: 1 Plan: routine care Time Spent With Patient Time: Total time spent is greater than 50% in coordination of care (as documented) at patient's floor/unit and/or counseling patient: Exam 2 : Bimanual exam- vagina & uterus: other (Uterus firm, nt @U)
[2025-10-15] MEDS: MULTIVIT/MIN/PREN/FOL AC/IRON TABLET 1 TAB PO (08:26)
[2025-10-15] MEDS: DOCUSATE SODIUM 100 MG CAPSULE PO (08:26)
--- NOTE | 2025-10-15 12:05 | PC.NURSE ---
Consulted with mother concerning needs and she shared her ability to independently latch infant optimally without pain. Per mother she is also supplementing after with formula, mother aware that if her infant does not effectively feed at the breast or if only bottle feed then she should use her breast pump to protect her milk supply. Mother is feeding appropriately for growth of infant and understands stimulating to eat if needed. Infant has had appropriate feedings and meets the outcomes for weight, output, blood sugar and jaundice at this time. Reinforced understanding of milk production, transition of milk, signs of adequate intake, transition of stool, prevention/relief of engorgement, plugged ducts, mastitis, responsive watching for feeding cues, the different methods of stimulating infant to breastfeed 1-3 hours after the start of the last feeding, community resources, and when to call a provider using the resource of the feeding sheet along with the mom and baby guide. Mother voiced understanding of the information shared, is confident to continue effectively her at home, when to call for assistance, denies any additional assistance or education at this time. Reported to the Primary RN.
[2025-10-15 16:19] VITALS: BP 136/77; PULSE 72; RESP 18; TEMP 36.7; O2SAT 100
== END 2025-10-15 22:13 | disposition home or self-care (01) | DRG 807 ==
LOC: ANHLDR 18:18 → ANHOB2 10-15 21:20 → ANHLDR 10-17 08:48 → ANHOB2 10-17 08:48
PROVIDERS: Admitting Provider Obstetrics & Gynecology Gynecology; PCP Family Medicine; Visit Provider Obstetrics & Gynecology Gynecology
DX: O69.81X0 Labor and delivery complicated by cord around neck, without compression, not applicable or unspecified (principal); Z37.0 Single live birth; Z3A.38 38 weeks gestation of pregnancy; O70.0 First degree perineal laceration during delivery
CPT/HCPCS: 36415; 85014; 85018; 85025; 86593; 86850; 86900; 86901; 88307; A9270; J2590; J2795; J7120